=== PATIENT | female | born 1965 | race Caucasian/White ===

== ENCOUNTER 2016-09-04 16:46 | Emergency (ER) | payer BC ==
[2016-09-04 18:27] VITALS: BP 122/62
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
[2016-09-04] MEDS ORDERED: Amoxicillin/Clavulanate TAB* 875 MG PO ONE ×2 (19:57→19:58)
[2016-09-04] MEDS ORDERED: Amoxicillin/Clavulanate TAB* 875 MG ONE (20:16)
== END 2016-09-04 20:24 | disposition home or self-care (01) ==
LOC: UCCORT 16:46
DX: J32.9 Chronic sinusitis, unspecified (principal)
CPT/HCPCS: 99212; A9270-GY; G0463